=== PATIENT | male | born 1950 | race Asian ===

== ENCOUNTER 2017-06-29 07:27 | Outpatient (CLI) | payer OTHER | END 2017-06-29 07:33 | disposition short-term general hospital (02) | LOC: AMB 07:27 | DX: M25.531 Pain in right wrist (principal) | CPT/HCPCS: A0425; A0429 ==

== ENCOUNTER 2017-06-29 07:33 | Emergency (ER) | payer OTHER ==
[~2017-06-29] VITALS: Ht 180.3 cm; Wt 88.9 kg
[2017-06-29 08:06] LABS: PLATELET COUNT 203 K/uL (142-355)
== END 2017-06-29 09:03 | disposition home or self-care (01) ==
LOC: ED 07:33
DX: M85.68 Other cyst of bone, other site (principal); M25.531 Pain in right wrist
CPT/HCPCS: 36415; 80053; 84550; 85027; 99283